=== PATIENT | female | born 1990 | race Caucasian/White ===

== ENCOUNTER 2017-02-13 11:05 | Emergency (ER) | payer BC, MEDICAID ==
[2017-02-13 11:16] VITALS: BP 138/85
--- NOTE | 2017-02-13 11:44 | EDM.PDOC ---
ED HPI GENERAL MEDICAL PROBLEM - General Chief Complaint: ENT Problem Stated Complaint: ear infection [id number] Time Seen by Provider: 02/13/17 11:25 Source of Information: Reports: Patient History Limitations: Reports: No Limitations - History of Present Illness INITIAL COMMENTS - FREE TEXT/NARRATIVE: Patient comes emergency Department today with complaints of right ear pain that has been going on for the past 2 days. [facility] and they looked in her ear and they thought it was infectious. She has also complained of a cough that has been going on for the past 2-3 months. It is not become more productive. It is clear white to norris production very small amount. Only a 1 pack-a-day smoker. She denies any fever or chills. Denies any chest pain shortness of breath or difficulty breathing. She typically uses an albuterol nebulizer for this, although she has not used it since it has developed over the past couple of months. She does complain of sinus congestion as well as drainage. Itchy scratchy throat denies any difficulty with hearing. Some clear nasal drainage. 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 ED EXAM, ENT - Physical Exam Exam: See Below Exam Limited By: No Limitations General Appearance: Alert, WD/WN, No Apparent Distress Eye Exam: Bilateral Eye: Normal Inspection Ears: Normal External Exam, Hearing Grossly Normal, Normal TMs, Other (Patient does have some mild excoriation of the inferior canal with mild erythema no exudate or swelling of the right canal where she is complaining of pain. The tympanic membrane is unremarkable.). No: Auricular Erythema, Auricular Ecchymosis, Auricular Tenderness, Mastoid Swelling, Mastoid Tenderness, Canal Blood, Canal Discharge, Canal Foreign Body Nose: Clear Rhinorrhea, Nasal Discharge, Injected Turbinates. No: Nasal Deformity, Nasal Swelling, Nasal Tenderness Mouth/Throat: Normal Inspection, Normal Gums, Normal Lips, Other (Posterior pharynx with cobblestoning and pink salmon-colored vesicles consistent with postnasal drip.). No: Bleeding, Drooling, Hoarse Voice, Pharyngeal Erythema, Throat Pain, Throat Swelling, Tongue Swelling, Tonsillar Erythema, Tonsillar Exudates, Tonsillar Swelling, Uvular Deviation, Uvular Edema Head: Atraumatic, Normocephalic Neck: Normal Inspection, Supple, Non-Tender, Full Range of Motion Respiratory/Chest: No Respiratory Distress, Lungs Clear, Normal Breath Sounds, No Accessory Muscle Use Cardiovascular: Normal Peripheral Pulses, Regular Rate, Rhythm (Female) Exam: Deferred Rectal (Female) Exam: Deferred Back: Normal Inspection Extremities: Normal Inspection, Normal Range of Motion, Normal Capillary Refill Psychiatric: Normal Affect Skin: Warm, Dry, Intact, Normal Color Lymphatic: No Adenopathy Course - Vital Signs Last Recorded V/S: Last Vital Signs Temp 36.7 C 02/13/17 11:16 Pulse 72 02/13/17 11:16 Resp 16 02/13/17 11:16 BP 138/85 02/13/17 11:16 Pulse Ox 99 02/13/17 11:16 - Re-Assessments/Exams Free Text/Narrative Re-Assessment/Exam: 02/13/17 12:43 The patient the pain that she is most likely having in her right ear canal is from the repeated use of Q-tips within the ear canal. It appears more excoriated or a brace but does not appear to be infectious at this time. Discontinuation of Q-tip usage at this time is paramount. We will treat her conservatively for her upper respiratory infection. She was kept with this plan and her questions were answered. We'll also have her some albuterol for her cough in the form of an MDI such she may use this more than the nebulizer that she has at home. Departure - Departure Time of Disposition: 11:40 Disposition: Home, Self-Care 01 Clinical Impression: Otalgia, right ear URI (upper respiratory infection) Qualifiers: URI type: unspecified URI Qualified Code(s): J06.9 - Acute upper respiratory infection, unspecified - Discharge Information Instructions: Upper Respiratory Infection, Adult, [id number] Forms: ED Department Discharge Additional Instructions: Tylenol and/or ibuprofen as needed for pain. Try albuterol nebulizer you have at home for your chronic cough. Also given albuterol 2 puffs every 4 hrs prn cough. If symptoms do not improve consider heartburn treatment as this may be another cause of cough., Discontinue cleaning ear ear canals daily with Q-tips as this is causing the irritation in the right ear canal. Do not put anything in your ear canal smaller than her elbow. Nasal saline rinses twice daily until symptom-free. Ytcy-fze-xomaklb products such as [place] and/or Felipa pot. Sudafed as needed for headache or congestion. 10 minutes after saline nasal rinse fluticasone 2 sprays each nostril once a day for 1 week then 1 spray each nostril every day until symptom-free. Return to the emergency department for worsening symptoms. Follow-up primary care provider in the next 4-6 days as needed. - Assessment/Plan Assessment:: Right ear canal excoriation-due to Q tip usage to clean canal without evidence of infection. URI-Cold Cough for 2 months, ? 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 Plan: Tylenol and/or ibuprofen as needed for pain. Try albuterol nebulizer you have at home for your chronic cough. Also given albuterol 2 puffs every 4 hrs prn cough. If symptoms do not improve consider heartburn treatment as this may be another cause of cough., Discontinue cleaning ear ear canals daily with Q-tips as this is causing the irritation in the right ear canal. Do not put anything in your ear canal smaller than her elbow. Nasal saline rinses twice daily until symptom-free. Vlkg-lhs-xgayhnl products such as [place] and/or Felipa pot. Sudafed as needed for headache or congestion. 10 minutes after saline nasal rinse fluticasone 2 sprays each nostril once a day for 1 week then 1 spray each nostril every day until symptom-free. Return to the emergency department for worsening symptoms. Follow-up primary care provider in the next 4-6 days as needed.
== END 2017-02-13 11:53 | disposition home or self-care (01) ==
LOC: DL.ED 11:05
DX: H92.01 Otalgia, right ear (principal); J06.9 Acute upper respiratory infection, unspecified; F17.210 Nicotine dependence, cigarettes, uncomplicated; Z79.899 Other long term (current) drug therapy; Z88.0 Allergy status to penicillin
CPT/HCPCS: 99283